=== PATIENT | female | born 1965 | race Hispanic/Latino ===

== ENCOUNTER 2017-05-28 09:05 | Inpatient (IN) | payer BC ==
[2017-05-28] MEDS ORDERED: NACL 0.9% 1000 ML 1,000 ML IV ONE (09:15)
[2017-05-28] MEDS ORDERED: XOPENEX IH ONE (09:15)
--- NOTE | 2017-05-28 09:18 | Emergency Department Report ---
ED Chest Pain HPI - General Stated Complaint: SOB Time Seen by Provider: 05/28/17 09:08 - History of Present Illness Initial Comments: 52-year-old female presents to the emergency department with complaint of some palpitations that have been going on since last night. This morning she noticed her heart rate to be between 130 and 150 bpm that was sustained throughout the morning. She has some shortness of breath and says that she feels some type of tightness within the chest. She has some nausea without vomiting. She denies any fever, diaphoresis. No recent travel or sick contacts at home. She has a past medical history of hyperlipidemia, hypertension and insomnia. She works as a nurse here at [employer]. Primary care physician is Dr. Medrano. She is not currently have a plant general manager but has seen [facility] in the past, years ago. She did not take anything for her symptoms prior to presentation. - Related Data Home Medications Medication Instructions Recorded Confirmed Last Taken ALPRAZolam [Xanax TAB] 0.5 mg PO HS PRN 05/28/17 05/28/17 Unknown FLUoxetine HCL [Prozac] 10 mg PO QDAY 05/28/17 05/28/17 05/28/17 Losartan/Hydrochlorothiazide 1 each PO QDAY 05/28/17 05/28/17 05/28/17 [Losartan-Hctz 50-12.5 mg Tab] Pantoprazole [Protonix] 40 mg PO QDAY 05/28/17 05/28/17 05/28/17 Simvastatin [Zocor TAB] 20 mg PO QHS 05/28/17 05/28/17 05/27/17 traZODone [Desyrel] 100 mg PO QHS 05/28/17 05/28/17 05/27/17 Allergies Allergy/AdvReac Type Severity Reaction Status Date / Time bupropion [From Wellbutrin] AdvReac Hives Verified 05/28/17 11:37 codeine AdvReac Hives Verified 05/28/17 11:37 levofloxacin [From Levaquin] AdvReac Hives Verified 05/28/17 11:37 Heart Score - HEART Score History: Slightly suspicious EKG: Non-specific Age: 45-65 Risk factors: 1-2 risk factors Troponin: < normal limit HEART Score: 3 - Critical Actions Critical Actions: 0-3 pts:0.9-1.7%risk of adverse cardiac event.Candidate for discharge ED Review of Systems ROS: Stated complaint: SOB Other details as noted in HPI Comment: All other systems reviewed and negative Constitutional: denies: chills, fever Eyes: denies: eye pain, eye discharge, vision change ENT: denies: ear pain, throat pain Respiratory: shortness of breath. denies: cough Cardiovascular: chest pain. denies: edema Gastrointestinal: nausea. denies: abdominal pain, vomiting Genitourinary: denies: urgency, dysuria, discharge Musculoskeletal: denies: joint swelling, arthralgia Skin: denies: rash, lesions Neurological: denies: headache, weakness, paresthesias ED Past Medical Hx - Past Medical History Previous Medical History?: No - Surgical History Past Surgical History?: No - Medications Home Medications: Home Medications Medication Instructions Recorded Confirmed Last Taken Type ALPRAZolam [Xanax TAB] 0.5 mg PO HS PRN 05/28/17 05/28/17 Unknown History FLUoxetine HCL [Prozac] 10 mg PO QDAY 05/28/17 05/28/17 05/28/17 History Losartan/Hydrochlorothiazide 1 each PO QDAY 05/28/17 05/28/17 05/28/17 History [Losartan-Hctz 50-12.5 mg Tab] Pantoprazole [Protonix] 40 mg PO QDAY 05/28/17 05/28/17 05/28/17 History Simvastatin [Zocor TAB] 20 mg PO QHS 05/28/17 05/28/17 05/27/17 History traZODone [Desyrel] 100 mg PO QHS 05/28/17 05/28/17 05/27/17 History ED Physical Exam - Other Other exam information: GENERAL: The patient is well-developed well-nourished. HENT: Normocephalic. Atraumatic. Patient has moist mucous membranes. EYES: Extraocular motions are intact. Pupils equal reactive to light bilaterally. NECK: Supple. Trachea is midline. CHEST/LUNGS: Clear to auscultation. There is no respiratory distress noted. HEART/CARDIOVASCULAR: Regular. There is mild tachycardia. There is no murmur. ABDOMEN: Abdomen is soft, nontender. Patient has normal bowel sounds. There is no abdominal distention. SKIN: Skin is warm and dry. NEURO: The patient is awake, alert, and oriented. The patient is cooperative. The patient has no focal neurologic deficits. The patient has normal speech and gait. MUSCULOSKELETAL: There is no tenderness or deformity. There is no limitation range of motion. There is no evidence of acute injury. ED Course Vital Signs 05/28/17 05/28/17 09:16 11:27 Temperature 98.5 F Pulse Rate 109 H 87 Respiratory 20 16 Rate Blood Pressure 134/82 Blood Pressure 111/67 [Left] O2 Sat by Pulse 100 Oximetry ZENOBIA score - Zenobia Score Age > 65: (0) No Aspirin use within the Past 7 Days: (0) No 3 or more CAD Risk Factors: (0) No 2 or more Angina events in past 24 hrs: (1) Yes Known CAD with more than 50% Stenosis: (0) No Elevated Cardiac Markers: (0) No ST Deviation Greater than 0.5mm: (0) No ZENOBIA Score: 1 ED Medical Decision Making - Lab Data Result diagrams: 05/28/17 Unknown 05/28/17 Unknown - EKG Data -: EKG Interpreted by Me EKG shows normal: sinus rhythm, axis, intervals, QRS complexes, ST-T waves ( nonspecific ST-T waves) Rate: tachycardia (113 bpm) - EKG Data When compared to previous EKG there are: previous EKG unavailable Interpretation: nonspecific ST-T wave marissa (with sinus tachycardia) - Radiology Data Radiology results: image reviewed interpreted by me: Chest x-ray does not show any acute process. There are no pleural effusions, obvious pneumonia and there is no pneumothorax. - Medical Decision Making Patient's workup is thus far been negative. However she does have a few risk factors for coronary artery disease and continues to have some chest discomfort without any recent stress test. EKG does not show any installation of my, ischemia or dysrhythmia. The patient will be admitted to hospital for cardiology consultation and probable stress test. She has been accepted for admission by the hospitalist, Dr. Medrano, who is asked for bridging orders to be placed. - Differential Diagnosis ME, costochondritis, pneumonia, PE Critical Care Time: No Critical care attestation.: If time is entered above; I have spent that time in minutes in the direct care of this critically ill patient, excluding procedure time. ED Disposition Clinical Impression: Heart palpitations Chest pain Qualifiers: Chest pain type: unspecified Qualified Code(s): R07.9 - Chest pain, unspecified Dyspnea Qualifiers: Dyspnea type: shortness of breath Qualified Code(s): R06.02 - Shortness of breath Disposition: DC-09 OP ADMIT IP TO THIS HOSP Is pt being admited?: Yes Does the pt Need Aspirin: Yes Condition: Stable Instructions: Chest Pain (ED) Referrals: AYE MEDRANO MD [Primary Care Provider] - 3-5 Days Time of Disposition: 11:25
[2017-05-28 09:58] LABS: Basophils # (Auto) 0.1 K/mm3 (0.0-0.1); Basophils % (Auto) 0.9 % (0.0-1.8); Eosinophils # (Auto) 0.1 K/mm3 (0.0-0.4); Eosinophils % (Auto) 1.2 % (0.0-4.3); Hematocrit 41.2 % (30.3-42.9); Hemoglobin 14.2 gm/dl (10.1-14.3); Lymphocytes # (Auto) 2.4 K/mm3 (1.2-5.4); Lymphocytes % (Auto) 30.6 % (13.4-35.0); Mean Corpuscular HGB Conc 35 % (30-34); Mean Corpuscular Hemoglobin 29 pg (28-32); Mean Corpuscular Volume 84 fl (79-97); Monocytes # (Auto) 0.4 K/mm3 (0.0-0.8); Monocytes % (Auto) 5.5 % (0.0-7.3); Platelet Count 348 K/mm3 (140-440); Red Blood Count 4.91 M/mm3 (3.65-5.03); Red Cell Distribution Width 13.6 % (13.2-15.2)
--- NOTE | 2017-05-28 10:00 | XRay Report ---
AP CHEST: HISTORY: chest pain AP view of the chest demonstrates a normal mediastinal and cardiac contour with clear lungs and normal bony and soft tissue structures. IMPRESSION: Unremarkable AP chest.
[2017-05-28 10:19] LABS: BUN/Creatinine Ratio 17; Blood Urea Nitrogen 12 mg/dL (7-17); Hemolysis Index 5
[2017-05-28] MEDS ORDERED: MORPHINE IV ONE ×2 (10:27→12:29)
[2017-05-28] MEDS ORDERED: BABY ASPIRIN PO ONE (11:25)
[2017-05-28] MEDS ORDERED: ZOFRAN IV ONE (12:29)
[2017-05-28] MEDS: HEPARIN SUB-Q SCH ×2 (15:03→22:41)
--- NOTE | 2017-05-28 16:11 | Consultation ---
History of Present Illness Consult date: 05/28/17 Requesting physician: CODY BABB Consult reason: chest pain History of present illness: The pt is a 52-year-old female with a past medical history significant for HTN and HLP. She is previously unknown to our practice. She is a nurse at [employer]. She presented with complaints of some palpitations since yesterday evening. This morning she noticed her heart rate to be between 130 and 150 bpm that was sustained throughout the morning. She had some shortness of breath and says that she feelt a vice-like chest tightness as well. She had some nausea without vomiting. She denies any fever, diaphoresis. She admits that for the past 2 years, she has been intermittently experiencing a nonexertional, nonradiating midsternal vice-like pain which has no clear aggravating or alleviating factors. She underwent treadmill stress test this AM and developed some chest pain with minimal ST elevations in inferolateral leads during recovery. On evaluation, she is resting comfortably and denies any current complaints. Past History Past Medical History: hypertension, hyperlipidemia Social history: , lives with family Family history: no significant family history Medications and Allergies Allergies Allergy/AdvReac Type Severity Reaction Status Date / Time bupropion [From Wellbutrin] AdvReac Hives Verified 05/28/17 11:37 codeine AdvReac Hives Verified 05/28/17 11:37 levofloxacin [From Levaquin] AdvReac Hives Verified 05/28/17 11:37 Home Medications Medication Instructions Recorded Confirmed Last Taken Type ALPRAZolam [Xanax TAB] 0.5 mg PO HS PRN 05/28/17 05/28/17 Unknown History FLUoxetine HCL [Prozac] 10 mg PO QDAY 05/28/17 05/28/17 05/28/17 History Losartan/Hydrochlorothiazide 1 each PO QDAY 05/28/17 05/28/17 05/28/17 History [Losartan-Hctz 50-12.5 mg Tab] Pantoprazole [Protonix] 40 mg PO QDAY 05/28/17 05/28/17 05/28/17 History Simvastatin [Zocor TAB] 20 mg PO QHS 05/28/17 05/28/17 05/27/17 History traZODone [Desyrel] 100 mg PO QHS 05/28/17 05/28/17 05/27/17 History Active Meds: Active Medications Heparin Sodium (Porcine) (Heparin) 5,000 unit SUB-Q Q8HR [facility] Last Admin: 05/28/17 15:03 Dose: Not Given Review of Systems Constitutional: no weight loss, no weight gain, no fever, no chills, no sweats Ears, nose, mouth and throat: no ear pain, no nose pain, no sinus pressure, no sinus pain Cardiovascular: chest pain, palpitations, shortness of breath, high blood pressure, no orthopnea, no rapid/irregular heart beat, no edema, no syncope, no lightheadedness Respiratory: no cough, no congestion, no wheezing, no pain on inspiration Gastrointestinal: nausea, no abdominal pain, no vomiting, no diarrhea, no constipation, no change in bowel habits Genitourinary Female: no pelvic pain, no flank pain, no dysuria, no urinary frequency, no urgency Musculoskeletal: no neck stiffness, no neck pain, no shooting arm pain, no arm numbness/tingling, no low back pain, no shooting leg pain, no leg numbness/ tingling, no redness of joints Integumentary: no rash, no pruritis, no redness, no sores, no wounds Neurological: no head injury, no paralysis, no weakness, no parathesias, no numbness, no tingling, no seizures, no syncope Psychiatric: no anxiety Endocrine: no cold intolerance, no heat intolerance Hematologic/Lymphatic: no easy bruising, no easy bleeding, no lymphadenopathy Allergic/Immunologic: no urticaria, no wheezing, no persistent infections Physical Examination Vital Signs Temp Pulse Resp BP Pulse Ox 98.5 F 109 H 20 134/82 100 05/28/17 09:16 05/28/17 09:16 05/28/17 09:16 05/28/17 09:16 05/28/17 09:16 General appearance: no acute distress HEENT: Positive: PERRL, Normocephaly, Mucus Membranes Moist Neck: Positive: neck supple, trachea midline Cardiac: Positive: Reg Rate and Rhythm, S1/S2 Lungs: Positive: Normal Exam, clear to auscultation, Normal Breath Sounds Neuro: Positive: Grossly Intact, Cranial Nerve 2-12 Intact Abdomen: Positive: Soft. Negative: Tender Skin: Positive: Clear. Negative: Rash, Wound Musculoskeletal: No Fluid Collection, No Pain, Normal Range of Motion Extremities: Absent: edema Results 05/28/17 Unknown 05/28/17 Unknown CBC 05/28/17 Range/Units Unknown WBC 8.0 (4.5-11.0) K/mm3 RBC 4.91 (3.65-5.03) M/mm3 Hgb 14.2 (10.1-14.3) gm/dl Hct 41.2 (30.3-42.9) % Plt Count 348 (140-440) K/mm3 Lymph # 2.4 (1.2-5.4) K/mm3 [place] # 0.4 (0.0-0.8) K/mm3 Eos # 0.1 (0.0-0.4) K/mm3 Baso # 0.1 (0.0-0.1) K/mm3 Comprehensive Metabolic Panel 05/28/17 Range/Units Unknown Sodium 136 L (137-145) mmol/L Potassium 3.9 (3.6-5.0) mmol/L Chloride 96.1 L (98-107) mmol/L Carbon Dioxide 21 L (22-30) mmol/L BUN 12 (7-17) mg/dL Creatinine 0.7 (0.7-1.2) mg/dL Glucose 105 H (65-100) mg/dL Calcium 9.0 (8.4-10.2) mg/dL - Imaging and Cardiology EKG: report reviewed, image reviewed EKG interpretations - Telemetry EKG Rhythm: Sinus Rhythm - EKG Sinus rhythms and dysrhythmias: sinus rhythm Assessment and Plan Assessment: Chest pain - with both atypical and typical features Abnormal stress test Palpitations HTN HLP Plan: Proceed with coronary angiography tomorrow for definitive diagnosis. NPO after MN. Assessment and plan reviewed with pt and pt's at bedside. The patient has been seen in conjunction with Dr. Kelly who agrees with the assessment and plan of care.
[2017-05-28] MEDS ORDERED: MORPHINE IV PRN (16:52)
[2017-05-28] MEDS ORDERED: NACL 0.9% 500 ML 500 ML IV SCH (17:00)
[2017-05-28] MEDS: MORPHINE IV PRN ×2 (17:37→21:22)
[2017-05-28 18:34] LABS: Creatine Kinase MB 1.4 ng/mL (0.0-4.0)
[2017-05-28] MEDS: ZOFRAN IV PRN (21:23)
--- NOTE | 2017-05-28 23:04 | History and Physical Report ---
History of Present Illness Date of examination: 05/28/17 Date of admission: 05/28/17 11:25 Chief complaint: Chief complaint: Left-sided chest pain since last night History of present illness: History of Present Illness: 52-year-old female with history of hypertension and hyperlipidemia comes in for left-sided chest pain and palpitations since last night. Symptoms have been persistent for the last 12 hours. Associated with some shortness of breath. Chest pain or 8 on a scale of 1-10. No aggravating or relieving factors. No diaphoresis. No palpitations. No recent travel. Past History Past Medical History: hypertension, hyperlipidemia Social history: , lives with family Family history: no significant family history Medications and Allergies Allergies Allergy/AdvReac Type Severity Reaction Status Date / Time bupropion [From Wellbutrin] AdvReac Hives Verified 05/28/17 11:37 codeine AdvReac Hives Verified 05/28/17 11:37 levofloxacin [From Levaquin] AdvReac Hives Verified 05/28/17 11:37 Home Medications Medication Instructions Recorded Confirmed Last Taken Type ALPRAZolam [Xanax TAB] 0.5 mg PO HS PRN 05/28/17 05/28/17 Unknown History FLUoxetine HCL [Prozac] 10 mg PO QDAY 05/28/17 05/28/17 05/28/17 History Losartan/Hydrochlorothiazide 1 each PO QDAY 05/28/17 05/28/17 05/28/17 History [Losartan-Hctz 50-12.5 mg Tab] Pantoprazole [Protonix] 40 mg PO QDAY 05/28/17 05/28/17 05/28/17 History Simvastatin [Zocor TAB] 20 mg PO QHS 05/28/17 05/28/17 05/27/17 History traZODone [Desyrel] 100 mg PO QHS 05/28/17 05/28/17 05/27/17 History Active Meds: Active Medications Heparin Sodium (Porcine) (Heparin) 5,000 unit SUB-Q Q8HR [facility] Last Admin: 05/28/17 15:03 Dose: Not Given Review of Systems Constitutional: no weight loss, no weight gain, no fever, no chills, no sweats Ears, nose, mouth and throat: no ear pain, no nose pain, no sinus pressure, no sinus pain Cardiovascular: chest pain, palpitations, shortness of breath, high blood pressure, no orthopnea, no rapid/irregular heart beat, no edema, no syncope, no lightheadedness Respiratory: no cough, no congestion, no wheezing, no pain on inspiration Gastrointestinal: nausea, no abdominal pain, no vomiting, no diarrhea, no constipation, no change in bowel habits Genitourinary Female: no pelvic pain, no flank pain, no dysuria, no urinary frequency, no urgency Musculoskeletal: no neck stiffness, no neck pain, no shooting arm pain, no arm numbness/tingling, no low back pain, no shooting leg pain, no leg numbness/ tingling, no redness of joints Integumentary: no rash, no pruritis, no redness, no sores, no wounds Neurological: no head injury, no paralysis, no weakness, no parathesias, no numbness, no tingling, no seizures, no syncope Psychiatric: no anxiety Endocrine: no cold intolerance, no heat intolerance Hematologic/Lymphatic: no easy bruising, no easy bleeding, no lymphadenopathy Allergic/Immunologic: no urticaria, no wheezing, no persistent infections 1 disease he Past History Past Medical History: hypertension, hyperlipidemia Social history: , lives with family Family history: no significant family history Medications and Allergies Allergies Allergy/AdvReac Type Severity Reaction Status Date / Time bupropion [From Wellbutrin] AdvReac Hives Verified 05/28/17 11:37 codeine AdvReac Hives Verified 05/28/17 11:37 levofloxacin [From Levaquin] AdvReac Hives Verified 05/28/17 11:37 Home Medications Medication Instructions Recorded Confirmed Last Taken Type ALPRAZolam [Xanax TAB] 0.5 mg PO HS PRN 05/28/17 05/28/17 Unknown History FLUoxetine HCL [Prozac] 10 mg PO QDAY 05/28/17 05/28/17 05/28/17 History Losartan/Hydrochlorothiazide 1 each PO QDAY 05/28/17 05/28/17 05/28/17 History [Losartan-Hctz 50-12.5 mg Tab] Pantoprazole [Protonix] 40 mg PO QDAY 05/28/17 05/28/17 05/28/17 History Simvastatin [Zocor TAB] 20 mg PO QHS 05/28/17 05/28/17 05/27/17 History traZODone [Desyrel] 100 mg PO QHS 05/28/17 05/28/17 05/27/17 History Active Meds: Active Medications Aspirin (Aspirin) 325 mg PO QDAY [facility] Heparin Sodium (Porcine) (Heparin) 5,000 unit SUB-Q Q8HR [facility] Last Admin: 05/28/17 22:41 Dose: Not Given Sodium Chloride (Nacl 0.9% 500 Ml) 500 mls @ 50 mls/hr IV DIRECT TIMMY Stop: 05/29/17 02:59 Last Admin: 05/28/17 17:24 Dose: 50 mls/hr Morphine Sulfate (Morphine) 2 mg IV Q4H PRN PRN Reason: Pain , Severe (7-10) Last Admin: 05/28/17 21:22 Dose: 2 mg Ondansetron HCl (Zofran) 4 mg IV Q6H PRN PRN Reason: Nausea And Vomiting Last Admin: 05/28/17 21:23 Dose: 4 mg Exam - Constitutional Vitals: Temp Pulse Resp BP Pulse Ox 98.5 F 73 15 116/65 95 05/28/17 09:16 05/28/17 22:01 05/28/17 22:01 05/28/17 22:01 05/28/17 22:01 General appearance: Present: no acute distress, well-nourished - EENT Eyes: Present: PERRL ENT: hearing intact, clear oral mucosa - Neck Neck: Present: supple, normal ROM - Respiratory Respiratory effort: normal Respiratory: bilateral: CTA - Cardiovascular Heart rate: 80 Rhythm: regular Heart Sounds: Present: S1 & S2. Absent: rub, click - Extremities Extremities: no ischemia, pulses intact, pulses symmetrical, No edema Peripheral Pulses: within normal limits - Abdominal General gastrointestinal: Present: soft, non-tender, non-distended, normal bowel sounds Female genitourinary: Present: normal - Integumentary Integumentary: Present: clear, warm, dry - Musculoskeletal Musculoskeletal: gait normal, strength equal bilaterally - Psychiatric Psychiatric: appropriate mood/affect, intact judgment & insight - Neurologic Neurologic: CNII-XII intact, moves all extremities - Allied Health Allied health notes reviewed: nursing, case management Results - Labs CBC & Chem 7: 05/28/17 Unknown 05/28/17 Unknown Labs: Laboratory Last Values WBC 8.0 K/mm3 (4.5-11.0) 05/28/17 Unknown RBC 4.91 M/mm3 (3.65-5.03) 05/28/17 Unknown Hgb 14.2 gm/dl (10.1-14.3) 05/28/17 Unknown Hct 41.2 % (30.3-42.9) 05/28/17 Unknown MCV 84 fl (79-97) 05/28/17 Unknown MCH 29 pg (28-32) 05/28/17 Unknown MCHC 35 % (30-34) H 05/28/17 Unknown RDW 13.6 % (13.2-15.2) 05/28/17 Unknown Plt Count 348 K/mm3 (140-440) 05/28/17 Unknown Lymph % (Auto) 30.6 % (13.4-35.0) 05/28/17 Unknown [place] % (Auto) 5.5 % (0.0-7.3) 05/28/17 Unknown Eos % (Auto) 1.2 % (0.0-4.3) 05/28/17 Unknown Baso % (Auto) 0.9 % (0.0-1.8) 05/28/17 Unknown Lymph # 2.4 K/mm3 (1.2-5.4) 05/28/17 Unknown [place] # 0.4 K/mm3 (0.0-0.8) 05/28/17 Unknown Eos # 0.1 K/mm3 (0.0-0.4) 05/28/17 Unknown Baso # 0.1 K/mm3 (0.0-0.1) 05/28/17 Unknown Seg Neutrophils % 61.8 % (40.0-70.0) 05/28/17 Unknown Seg Neutrophils # 4.9 K/mm3 (1.8-7.7) 05/28/17 Unknown D-Dimer 154.93 ng/mlDDU (0-234) 05/28/17 Unknown Sodium 136 mmol/L (137-145) L 05/28/17 Unknown Potassium 3.9 mmol/L (3.6-5.0) 05/28/17 Unknown Chloride 96.1 mmol/L (98-107) L 05/28/17 Unknown Carbon Dioxide 21 mmol/L (22-30) L 05/28/17 Unknown Anion Gap 23 mmol/L 05/28/17 Unknown BUN 12 mg/dL (7-17) 05/28/17 Unknown Creatinine 0.7 mg/dL (0.7-1.2) 05/28/17 Unknown Estimated GFR > 60 ml/min 05/28/17 Unknown BUN/Creatinine Ratio 17 % 05/28/17 Unknown Glucose 105 mg/dL (65-100) H 05/28/17 Unknown Calcium 9.0 mg/dL (8.4-10.2) 05/28/17 Unknown Total Creatine Kinase 81 units/L (30-135) 05/28/17 17:55 CK-MB (CK-2) 1.4 ng/mL (0.0-4.0) 05/28/17 17:55 CK-MB (CK-2) Rel Index 1.7 (0-4) 05/28/17 17:55 Troponin T < 0.010 ng/mL (0.00-0.029) 05/28/17 Unknown TSH 3.810 mlU/mL (0.270-4.200) 05/28/17 Unknown Short CBC 05/28/17 Range/Units Unknown WBC 8.0 (4.5-11.0) K/mm3 Hgb 14.2 (10.1-14.3) gm/dl Hct 41.2 (30.3-42.9) % Plt Count 348 (140-440) K/mm3 BMP 05/28/17 Unknown Sodium 136 L Potassium 3.9 Chloride 96.1 L Carbon Dioxide 21 L BUN 12 Creatinine 0.7 Glucose 105 H Calcium 9.0 Cardiac Enzymes 05/28/17 05/28/17 05/28/17 Range/Units 14:45 17:55 19:27 Total Creatine Kinase 81 (30-135) units/L CK-MB (CK-2) 1.4 (0.0-4.0) ng/mL Troponin T < 0.010 < 0.010 < 0.010 (0.00-0.029) ng/mL 05/28/17 Range/Units Unknown Total Creatine Kinase (30-135) units/L CK-MB (CK-2) (0.0-4.0) ng/mL Troponin T < 0.010 (0.00-0.029) ng/mL - Imaging and Cardiology EKG: report reviewed (normal sinus rhythm no acute ST-T wave changes) Chest x-ray: report reviewed (NAF) Assessment and Plan Advance Directives: Yes ( full code) VTE prophylaxis?: Chemical Plan of care discussed with patient/family: Yes - Patient Problems (1) Unstable angina Current Visit: Yes Status: Acute (2) Chest pain Current Visit: Yes Status: Acute Qualifiers: Chest pain type: unspecified Qualified Code(s): R07.9 - Chest pain, unspecified Plan to address problem: Treadmill stress test was positive in the morning. Patient to be taken to labor relations officer tomorrow. Serial cardiac enzymes. Cardiology consult. (3) Hypertension Current Visit: Yes Status: Chronic Qualifiers: Hypertension type: essential hypertension Qualified Code(s): I10 - Essential (primary) hypertension Plan to address problem: Continue losartan and hydrochlorothiazide (4) Hyperlipidemia Current Visit: Yes Status: Chronic Qualifiers: Hyperlipidemia type: mixed hyperlipidemia Qualified Code(s): E78.2 - Mixed hyperlipidemia Plan to address problem: Continue statins (5) Depression Current Visit: Yes Status: Chronic Qualifiers: Depression Type: unspecified Qualified Code(s): F32.9 - Major depressive disorder, single episode, unspecified Plan to address problem: Continue trazodone (6) DVT prophylaxis Current Visit: Yes Status: Acute Plan to address problem: On Lovenox
[2017-05-28] MEDS ORDERED: XANAX PO PRN (23:10)
[2017-05-29] MEDS: BENADRYL IV PRN ×3 (00:22→18:00)
[2017-05-29] MEDS: MORPHINE IV PRN ×3 (01:27→09:56)
--- NOTE | 2017-05-29 01:41 | Treadmill Report ---
INDICATION FOR PROCEDURE: Chest pain. The baseline electrocardiogram demonstrates normal sinus rhythm and is within normal limits. The resting heart rate was 112/80. PROCEDURE: The patient exercised according to the Levar protocol for 7 minutes, reaching a peak heart rate of 163 and a maximum blood pressure of 140/94. Exercise was limited by chest pain. The patient achieved 113% of the maximum predicted heart rate response and attained a workload of 8.3 mets. No significant ectopy was noted. The ST-T response during exercise appears normal; however, in the recovery phase, 1 mm of horizontal and upsloping ST-segment depression developed in the inferolateral leads. The exercise treadmill test is abnormal, characterized by chest discomfort and repolarization abnormalities suggestive of myocardial ischemia developing primarily in the recovery phase of the protocol. JOB# [id number] WILMER/CHANDU
[2017-05-29 05:34] LABS: Basophils # (Auto) 0.1 K/mm3 (0.0-0.1); Basophils % (Auto) 1.1 % (0.0-1.8); Eosinophils # (Auto) 0.2 K/mm3 (0.0-0.4); Eosinophils % (Auto) 2.1 % (0.0-4.3); Hematocrit 38.8 % (30.3-42.9); Hemoglobin 13.4 gm/dl (10.1-14.3); Lymphocytes # (Auto) 4.3 K/mm3 (1.2-5.4); Lymphocytes % (Auto) 44.7 % (13.4-35.0); Mean Corpuscular HGB Conc 35 % (30-34); Mean Corpuscular Hemoglobin 29 pg (28-32); Mean Corpuscular Volume 85 fl (79-97); Monocytes # (Auto) 0.5 K/mm3 (0.0-0.8); Monocytes % (Auto) 5.6 % (0.0-7.3); Red Blood Count 4.59 M/mm3 (3.65-5.03); Red Cell Distribution Width 13.4 % (13.2-15.2)
[2017-05-29 05:35] LABS: Platelet Count 259 K/mm3 (140-440)
[2017-05-29 05:44] LABS: BUN/Creatinine Ratio 15; Blood Urea Nitrogen 9 mg/dL (7-17); Calcium 8.5 mg/dL (8.4-10.2); Chol/HDL Ratio 3.64 %; HDL Cholesterol 45 mg/dL (40-59); Hemolysis Index 83; LDL Cholesterol,Direct 88 mg/dL (50-130)
[2017-05-29 05:46] LABS: INR 0.94 (0.87-1.13)
[2017-05-29] MEDS ORDERED: NON-FORMULARY (Losartan/Hydrochlorothiazide [Losartan-Hctz 50-12.5 Mg Tab] 1 EACH) PO SCH (10:00)
[2017-05-29] MEDS ORDERED: ASPIRIN PO SCH (10:00)
[2017-05-29] MEDS ORDERED: PROTONIX PO SCH (10:00)
[2017-05-29] MEDS ORDERED: COZAAR PO SCH (10:00)
[2017-05-29] MEDS ORDERED: HCTZ PO SCH (10:00)
[2017-05-29] MEDS ORDERED: PROzac PO SCH (10:00)
--- NOTE | 2017-05-29 10:28 | Progress Note ---
Assessment and Plan Assessment: Chest pain - with both atypical and typical features Abnormal stress test Palpitations HTN HLP Plan: Proceed with coronary angiography today. Await findings. The patient has been seen in conjunction with Dr. Kelly who agrees with the assessment and plan of care. Subjective Date of service: 05/29/17 Principal diagnosis: cp Interval history: Pt resting comfortably in bed, c/o intermittent chest pain overnight. NPO for [facility] today. Objective Last Vital Signs Temp 98.3 F 05/29/17 05:18 Pulse 77 05/29/17 05:44 Resp 18 05/29/17 05:18 BP 90/56 05/29/17 05:18 Pulse Ox 97 05/29/17 05:18 - Physical Examination General: No Apparent Distress HEENT: Positive: PERRL, Normocephaly, Mucus Membranes Moist Neck: Positive: neck supple, trachea midline Cardiac: Positive: Reg Rate and Rhythm, S1/S2 Lungs: Positive: clear to auscultation Neuro: Positive: Grossly Intact, Cranial Nerve 2-12 Intact Abdomen: Positive: Soft. Negative: Tender Skin: Positive: Clear. Negative: Rash, Wound Musculoskeletal: No Fluid Collection, No Pain, Normal Range of Motion Extremities: Absent: edema - Labs and Meds Cardiac Enzymes 05/28/17 Range/Units 17:55 CK-MB (CK-2) 1.4 (0.0-4.0) ng/mL Coagulation 05/29/17 Range/Units 05:03 PT 13.0 (12.2-14.9) Sec. INR 0.94 (0.87-1.13) Lipids 05/29/17 Range/Units 05:03 Triglycerides 155 H (2-149) mg/dL Cholesterol 164 (50-199) mg/dL HDL Cholesterol 45 (40-59) mg/dL Cholesterol/HDL Ratio 3.64 % CBC 05/29/17 Range/Units 05:03 WBC 9.5 (4.5-11.0) K/mm3 RBC 4.59 (3.65-5.03) M/mm3 Hgb 13.4 (10.1-14.3) gm/dl Hct 38.8 (30.3-42.9) % Plt Count 259 (140-440) K/mm3 Lymph # 4.3 (1.2-5.4) K/mm3 Donley # 0.5 (0.0-0.8) K/mm3 Eos # 0.2 (0.0-0.4) K/mm3 Baso # 0.1 (0.0-0.1) K/mm3 Comprehensive Metabolic Panel 05/29/17 Range/Units 05:03 Sodium 138 (137-145) mmol/L Potassium 4.4 (3.6-5.0) mmol/L Chloride 103.2 (98-107) mmol/L Carbon Dioxide 20 L (22-30) mmol/L BUN 9 (7-17) mg/dL Creatinine 0.6 L (0.7-1.2) mg/dL Glucose 91 (65-100) mg/dL Calcium 8.5 (8.4-10.2) mg/dL - Imaging and Cardiology EKG: report reviewed (normal sinus rhythm no acute ST-T wave changes) - Telemetry EKG Rhythm: Sinus Rhythm - EKG Sinus rhythms and dysrhythmias: sinus rhythm
[2017-05-29] MEDS ORDERED: NITROSTAT SL PRN (11:14)
--- NOTE | 2017-05-29 14:52 | Progress Note ---
Assessment and Plan - Patient Problems (1) Unstable angina Current Visit: Yes Status: Acute (2) Chest pain Current Visit: Yes Status: Acute Qualifiers: Chest pain type: unspecified Qualified Code(s): R07.9 - Chest pain, unspecified (3) Hypertension Current Visit: Yes Status: Chronic Qualifiers: Hypertension type: essential hypertension Qualified Code(s): I10 - Essential (primary) hypertension (4) Hyperlipidemia Current Visit: Yes Status: Chronic Qualifiers: Hyperlipidemia type: mixed hyperlipidemia Qualified Code(s): E78.2 - Mixed hyperlipidemia (5) Depression Current Visit: Yes Status: Chronic Qualifiers: Depression Type: unspecified Qualified Code(s): F32.9 - Major depressive disorder, single episode, unspecified (6) DVT prophylaxis Current Visit: Yes Status: Acute Subjective Date of service: 05/29/17 Principal diagnosis: cp Objective - Constitutional Vitals: Vital Signs - 12hr 05/29/17 05/29/17 05/29/17 05:18 05:44 07:29 Temperature 98.3 F 98.2 F Pulse Rate 64 77 64 Respiratory 18 20 Rate Blood Pressure 90/56 110/70 O2 Sat by Pulse 97 95 Oximetry 05/29/17 05/29/17 08:12 12:40 Temperature Pulse Rate 64 66 Respiratory Rate Blood Pressure 114/63 O2 Sat by Pulse Oximetry General appearance: Present: no acute distress, well-nourished - EENT Eyes: PERRL, EOM intact ENT: hearing intact, clear oral mucosa Ears: bilateral: normal - Neck Neck: supple, normal ROM - Respiratory Respiratory effort: normal Respiratory: bilateral: CTA - Breasts Breasts: normal - Cardiovascular Rhythm: regular Heart Sounds: Present: S1 & S2. Absent: gallop, rub Extremities: pulses intact, No edema, normal color, Full ROM - Gastrointestinal General gastrointestinal: Present: soft, non-tender, non-distended, normal bowel sounds - Genitourinary Female genitourinary: normal - Integumentary Integumentary: clear, warm, dry - Musculoskeletal Musculoskeletal: 1, strength equal bilaterally - Neurologic Neurologic: moves all extremities - Psychiatric Psychiatric: memory intact, appropriate mood/affect, intact judgment & insight - Labs CBC & Chem 7: 05/29/17 05:03 05/29/17 05:03 Labs: Abnormal lab results 05/29/17 05/29/17 Range/Units 05:03 05:03 MCHC 35 H (30-34) % Lymph % (Auto) 44.7 H (13.4-35.0) % Carbon Dioxide 20 L (22-30) mmol/L Creatinine 0.6 L (0.7-1.2) mg/dL Triglycerides 155 H (2-149) mg/dL
[2017-05-29] MEDS ORDERED: ZOFRAN ONE (15:28)
[2017-05-29] MEDS: ZOFRAN IV PRN (15:32)
[2017-05-29] MEDS ORDERED: ECOTRIN PO ONE (15:36)
[2017-05-29] MEDS ORDERED: NACL 0.9% 500 ML 500 ML ONE (15:43)
[2017-05-29] MEDS ORDERED: HEPARIN/NS 5000 UNIT/500ML(CATH LAB) 1,000 ML IR ONE (15:48)
[2017-05-29] MEDS ORDERED: XYLOCAINE 2% INFILTRATI ONE (15:48)
[2017-05-29] MEDS: SUBLIMAZE ONE ×2 (16:09→16:25)
[2017-05-29] MEDS: VERSED ONE ×2 (16:09→16:25)
[2017-05-29] MEDS: HEPARIN 10,000 UNITS/10 ML ONE ×2 (16:12→16:13)
[2017-05-29] MEDS: CALAN ONE ×2 (16:12→16:13)
[2017-05-29] MEDS: NITROGLYCERIN SYRINGE 3 ML ONE ×2 (16:12→16:13)
--- NOTE | 2017-05-29 18:25 | Cardiac Catherization Report ---
INDICATIONS: Chest pain. CLINICAL INFORMATION: This is a 52-year-old female with obesity, hypertension, having shortness of breath with exertion, was having refractory chest pain despite negative stress test and troponin, here for left heart catheterization for definitive diagnosis. Moderate sedation supervision 1.5 mg of Versed and 100 mcg of fentanyl was given. Total sedation time was 25 minutes. Start time 1610 and end time was 1635. PROCEDURE DETAILS: Left heart cath performed via the right radial artery, normal Jeremías's test, sterile technique, local anesthesia, 6-Monegasque radial sheath inserted. PROCEDURE FINDINGS: Left system engaged with an AL2 catheter, high anterior takeoff. Left main large and patent and bifurcates into LAD that has proximal large caliber, mid to distal . Medium caliber vessel that is patent. Small diagonal 1 is patent. Circumflex is a large caliber vessel and AV groove patent. OM1 is a large caliber vessel, patent. RCA engaged with JR4 catheter, is a large dominant vessel, patent from proximally and distally. Medium caliber PDA, PLV is patent and normal. LV gram done in SAMMARINESE and CLEMENT view shows normal LV function, EF 55-60%, LVEDP 20 mmHg, LV is 120/20. Aortic is 120/66. No gradient across the aortic valve on pullback. 5-Monegasque catheters were taken over guidewire. 6-Monegasque radial sheath was discontinued. Radial dressing applied. No hematoma, no bleeding. SUMMARY: 1. Normal coronaries, right dominant system. 2. Normal LV function. 3. Continue risk factor modification. Discussed this in detail with the patient and patient's family. JOB# [id number] MADELYN/CHANDU
--- NOTE | 2017-05-29 18:34 | Discharge Summary ---
Providers - Providers Date of Admission: 05/28/17 11:25 Date of discharge: 05/29/17 Attending physician: AYE MEDRANO 05/28/17 11:35 Consult to Cardiology [CONS] Routine Consulting Provider: PORSCHE BROWN Reason For Exam: Chest pain, palpitations 05/28/17 22:55 Consult to Physician [CONS] Routine Consulting Provider: TIMOTHY HARRIS Reason For Exam: positive stress test Notified:: yes 05/29/17 16:31 Consult to Cardiac Rehabilitation [CONS] Routine Reason For Exam: Cardiac Rehab Evaluation Primary care physician: AYE MEDRANO Hospitalization Condition: Stable Hospital course: Assessment and Plan Advance Directives: Yes ( full code) VTE prophylaxis?: Chemical Plan of care discussed with patient/family: Yes - Patient Problems (1) Unstable angina Current Visit: Yes Status: Acute (2) Chest pain Current Visit: Yes Status: Acute Qualifiers: Chest pain type: unspecified Qualified Code(s): R07.9 - Chest pain, unspecified Plan to address problem: Treadmill stress test was positive in the morning. Patient to be taken to laboratory technician tomorrow. Serial cardiac enzymes. Cardiology consult. (3) Hypertension Current Visit: Yes Status: Chronic Qualifiers: Hypertension type: essential hypertension Qualified Code(s): I10 - Essential (primary) hypertension Plan to address problem: Continue losartan and hydrochlorothiazide (4) Hyperlipidemia Current Visit: Yes Status: Chronic Qualifiers: Hyperlipidemia type: mixed hyperlipidemia Qualified Code(s): E78.2 - Mixed hyperlipidemia Plan to address problem: Continue statins (5) Depression Current Visit: Yes Status: Chronic Qualifiers: Depression Type: unspecified Qualified Code(s): F32.9 - Major depressive disorder, single episode, unspecified Plan to address problem: Continue trazodone (6) DVT prophylaxis Current Visit: Yes Status: Acute Plan to address problem: On Lovenox Disposition: DC-01 TO HOME OR SELFCARE Time spent for discharge: 32 minutes - Discharge Diagnoses (1) Unstable angina Status: Acute (2) Chest pain Status: Acute Qualifiers: Chest pain type: unspecified Qualified Code(s): R07.9 - Chest pain, unspecified (3) Hypertension Status: Chronic Qualifiers: Hypertension type: essential hypertension Qualified Code(s): I10 - Essential (primary) hypertension (4) Hyperlipidemia Status: Chronic Qualifiers: Hyperlipidemia type: mixed hyperlipidemia Qualified Code(s): E78.2 - Mixed hyperlipidemia (5) Depression Status: Chronic Qualifiers: Depression Type: unspecified Qualified Code(s): F32.9 - Major depressive disorder, single episode, unspecified (6) DVT prophylaxis Status: Acute Core Measure Documentation - Palliative Care Palliative Care/ Comfort Measures: Not Applicable - Core Measures Any of the following diagnoses?: none Exam - Constitutional Vitals: Temp Pulse Resp BP Pulse Ox 98 F 66 18 116/84 95 05/29/17 17:00 05/29/17 12:40 05/29/17 17:00 05/29/17 17:00 05/29/17 07:29 General appearance: Present: no acute distress, well-nourished - EENT Eyes: Present: PERRL ENT: hearing intact, clear oral mucosa - Neck Neck: Present: supple, normal ROM - Respiratory Respiratory effort: normal Respiratory: bilateral: CTA - Cardiovascular Heart Sounds: Present: S1 & S2. Absent: rub, click - Extremities Extremities: pulses symmetrical, No edema Peripheral Pulses: within normal limits - Abdominal General gastrointestinal: Present: soft, non-tender, non-distended, normal bowel sounds Female genitourinary: Present: normal - Integumentary Integumentary: Present: clear, warm, dry - Musculoskeletal Musculoskeletal: gait normal, strength equal bilaterally - Psychiatric Psychiatric: appropriate mood/affect, intact judgment & insight - Neurologic Neurologic: CNII-XII intact, moves all extremities Plan Activity: no restrictions Diet: low fat, low cholesterol, low salt Follow up with: AYE MEDRANO MD [Primary Care Provider] - 3-5 Days Forms: Work/School Excuse Out Patient
[2017-05-29 20:20] VITALS: BP 115/50
[2017-05-29] MEDS ORDERED: LOVENOX SUB-Q SCH (22:00)
[2017-05-29] MEDS ORDERED: DESYREL PO SCH (22:00)
[2017-05-29] MEDS ORDERED: PRAVACHOL PO SCH (22:00)
[2017-05-30] MEDS ORDERED: IMDUR PO SCH (10:00)
== END 2017-05-29 20:35 | disposition home or self-care (01) | DRG 287 ==
LOC: ED 09:05 → EEVIPCON 09:05 → 4A 11:25 → EEVIPCON 11:25 → 4A 23:33
PROVIDERS: ADMIT Internal Medicine; ATTEND Internal Medicine
PROC: 4A023N7 Measurement of Cardiac Sampling and Pressure, Left Heart, Percutaneous Approach (ICD-10-PCS; principal; 2017-05-29)
PROC: B2111ZZ Fluoroscopy of Multiple Coronary Arteries using Low Osmolar Contrast (ICD-10-PCS; 2017-05-29)
PROC: B2151ZZ Fluoroscopy of Left Heart using Low Osmolar Contrast (ICD-10-PCS; 2017-05-29)
DX: I20.0 Unstable angina (principal); I10 Essential (primary) hypertension; F32.9 Major depressive disorder, single episode, unspecified; E78.5 Hyperlipidemia, unspecified; Z88.1 Allergy status to other antibiotic agents; Z88.5 Allergy status to narcotic agent; Z88.8 Allergy status to other drugs, medicaments and biological substances
CPT/HCPCS: 36415; 71045; 80048; 80061; 82550; 82553; 84443; 84484; 85025; 85379; 85610; 93005; 93010; 93017; 93458; 96361; 96374; 96375; C1887; C1894; J1200; J1644; J2250; J2270; J2405; J3010; J7030; J7040; Q9967

== ENCOUNTER 2017-12-16 17:29 | Emergency (ER) | payer OTHER, BC ==
[2017-12-16 17:46] VITALS: BP 136/72
--- NOTE | 2017-12-16 17:52 | Emergency Department Report ---
HPI - General Chief Complaint: Puncture Wound Time Seen by Provider: 12/16/17 17:47 - HPI HPI: No room The patient is a 52-year-old female presented with a chief complaint of needle stick. The patient states she was cleaning up the room after patient was sutured on with surgeon and accidentally stuck herself with a suture needle on her right middle finger. This patient suture was used on does not report a history of infectious disease but has left prior to testing Location: Right middle finger Duration: [See above] Quality: [See above] Severity: Mild Modifying factors: [see above] Context: [see above] Mode of transportation: [not driving] ED Past Medical Hx - Past Medical History Hx Hypertension: Yes - Surgical History Hx Cholecystectomy: Yes - Family History Family history: no significant - Social History Smoking Status: Current Some Day Smoker Substance Use Type: None - Medications Home Medications: Home Medications Medication Instructions Recorded Confirmed Last Taken Type ALPRAZolam [Xanax TAB] 0.5 mg PO HS PRN 05/28/17 05/28/17 Unknown History FLUoxetine HCL [Prozac] 10 mg PO QDAY 05/28/17 05/28/17 05/28/17 History Losartan/Hydrochlorothiazide 1 each PO QDAY 05/28/17 05/28/17 05/28/17 History [Losartan-Hctz 50-12.5 mg Tab] Pantoprazole [Protonix] 40 mg PO QDAY 05/28/17 05/28/17 05/28/17 History Simvastatin [Zocor TAB] 20 mg PO QHS 05/28/17 05/28/17 05/27/17 History traZODone [Desyrel] 100 mg PO QHS 05/28/17 05/28/17 05/27/17 History Raltegravir Potassium [Isentress] 400 mg PO BID #60 tablet 12/16/17 Unknown Rx ED Review of Systems ROS: Stated complaint: BLOOD DRAWN Other details as noted in HPI Constitutional: no symptoms reported Respiratory: no symptoms reported Endocrine: no symptoms reported Physical Exam - Physical Exam Vital Signs: Vital Signs 12/16/17 17:43 Temperature 98.2 F Pulse Rate 82 Respiratory 20 Rate Blood Pressure 136/72 O2 Sat by Pulse 98 Oximetry Physical Exam: GENERAL: The patient is well-developed well-nourished female standing not appear to be in acute distress. [] HEENT: Normocephalic. Atraumatic. NECK: Trachea midline CHEST/LUNGS: Clear to auscultation. There is no respiratory distress noted. HEART/CARDIOVASCULAR: Regular. There is no tachycardia. There is no gallop rub or murmur. ABDOMEN: Patient has normal bowel sounds. There is no abdominal distention. SKIN: There is a small puncture wound to the fingertip of the right middle finger. No active bleeding. There is no diaphoresis. NEURO: The patient is awake, alert, and oriented. The patient is cooperative. The patient has normal speech and gait. MUSCULOSKELETAL:There is no limitation range of motion. ED Course Vital Signs 12/16/17 17:43 Temperature 98.2 F Pulse Rate 82 Respiratory 20 Rate Blood Pressure 136/72 O2 Sat by Pulse 98 Oximetry - Consultations Consultation #1: 12/16/17 17:[address] Forbes (infectious disease)-recommends administering Truvada Qday x 30 days, Isentres 400mg BID x 30 days, having HIV, hepatitis B surface antibody, hepatitis B antigen, hepatitis C antibodies sent off today ED Medical Decision Making - Medical Decision Making Patient given hand written prescription for Truvada 200 mg-300 mg # 30 1 po Qday , as this option is not available on [facility] - Differential Diagnosis needle stick Critical care attestation.: If time is entered above; I have spent that time in minutes in the direct care of this critically ill patient, excluding procedure time. ED Disposition Clinical Impression: Needle stick injury of finger Disposition: DC-01 TO HOME OR SELFCARE Is pt being admited?: No Does the pt Need Aspirin: No Condition: Stable Instructions: Needle Stick Injuries (ED) Additional Instructions: Return to the emergency department immediately should you develop worsening symptoms, fever, inability to tolerate food or liquid or any other concerns. Prescriptions: Raltegravir Potassium [Isentress] 400 mg PO BID #60 tablet Referrals: [facility] [LAB/CONTRACT] - 2-3 Days Time of Disposition: 18:04
== END 2017-12-16 18:35 | disposition home or self-care (01) ==
LOC: ED 17:29
DX: S61.232A Puncture wound without foreign body of right middle finger without damage to nail, initial encounter (principal); I10 Essential (primary) hypertension; F17.200 Nicotine dependence, unspecified, uncomplicated; Z90.49 Acquired absence of other specified parts of digestive tract; W27.3XXA Contact with needle (sewing), initial encounter; Y93.89 Activity, other specified; Y92.89 Other specified places as the place of occurrence of the external cause; Y99.8 Other external cause status
CPT/HCPCS: 36415; 86706; 86803; 87806; 99283

== ENCOUNTER 2018-11-04 20:35 | Emergency (ER) | payer BC, OTHER ==
[2018-11-04 20:41] VITALS: BP 148/91
[2018-11-04] MEDS ORDERED: LET TOPICAL TP ONE (20:44)
--- NOTE | 2018-11-04 20:44 | Emergency Department Report ---
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 BLEEDING CONTROLLED ED Review of Systems ROS: Stated complaint: THUMB LACERATION Other details as noted in HPI Comment: All other systems reviewed and negative ED Past Medical Hx - Past Medical History Hx Hypertension: Yes Hx Psychiatric Treatment: Yes (depression, anxiety) Additional medical history: high cholesterol - Surgical History Hx Cholecystectomy: Yes Additional Surgical History: hernia repair, hysterectomy - Social History Smoking Status: Current Some Day Smoker Substance Use Type: None - Medications Home Medications: Home Medications Medication Instructions Recorded Confirmed Last Taken Type ALPRAZolam [Xanax TAB] 0.5 mg PO HS PRN 05/28/17 05/28/17 Unknown History FLUoxetine HCL [Prozac] 10 mg PO QDAY 05/28/17 05/28/17 05/28/17 History Losartan/Hydrochlorothiazide 1 each PO QDAY 05/28/17 05/28/17 05/28/17 History [Losartan-Hctz 50-12.5 mg Tab] Pantoprazole [Protonix] 40 mg PO QDAY 05/28/17 05/28/17 05/28/17 History Simvastatin (Nf) [Zocor TAB] 20 mg PO QHS 05/28/17 05/28/17 05/27/17 History traZODone [Desyrel] 100 mg PO QHS 05/28/17 05/28/17 05/27/17 History Raltegravir Potassium [Isentress] 400 mg PO BID #60 tablet 12/16/17 Unknown Rx Benzonatate [Tessalon Perle] 100 mg PO TID PRN #21 capsule 04/06/18 Unknown Rx Prednisone [predniSONE 5 mg (6-Day 5 mg PO .TAPER #1 tab.ds.pk 04/06/18 Unknown Rx Pack, 21 Tabs)] Sulfamethoxazole/Trimethoprim 1 each PO BID #6 tablet 11/04/18 Unknown Rx [Bactrim DS TAB] traMADol [Ultram] 50 mg PO Q6HR PRN #12 tablet 11/04/18 Unknown Rx Laceration Physical Exam - Exam General: Vital signs noted. No distress. Alert and acting appropriately. Laceration Location: Upper Extremity Laceration Exam: Yes Normal Distal CMS, No Foreign Body, No Exposed Tendon, Vessel, or Nerve, No Tendon Injury ED Course Vital Signs 11/04/18 20:40 Temperature 98.3 F Pulse Rate 99 H Respiratory 18 Rate Blood Pressure 148/91 [Right] O2 Sat by Pulse 99 Oximetry - Laceration /Wound Repair THUMB Wound Location: upper extremity Irrigated w/ Saline (ccs): 3 Betadine Prep?: Yes Anesthesia: 1% Lidocaine Volume Anesthetic (ccs): 1 Wound Debrided: minimal Wound Repaired With: sutures Suture Size/Type: 3:0 Number of Sutures: 4 Layer Closure?: No Sterile Dressing Applied?: Yes Progress: TOLERATED WELL ED Medical Decision Making - Medical Decision Making NEUROVASC INTACT LAC REPAIRED WOUND CLEANED AND DRESSED MEDICATED FOR PAIN TDAP UTD DC HOME WITH DC PLAN OF CARE - Differential Diagnosis SIMPLE LAC Critical care attestation.: If time is entered above; I have spent that time in minutes in the direct care of this critically ill patient, excluding procedure time. ED Disposition Clinical Impression: Thumb laceration Disposition: DC-01 TO HOME OR SELFCARE Is pt being admited?: No Does the pt Need Aspirin: No Condition: Stable Instructions: Laceration (ED) Additional Instructions: SUTURES OUT IN APPROX 7 DAYS ICE/REST/ELEVATE TONIGHT SPLINT TONIGHT TO KEEP STILL KEEP COVERED AT WORK MONITOR FOR INFECTION MEDS DISCUSSED MOTRIN OR TYLENOL FOR MILD PAIN Prescriptions: Sulfamethoxazole/Trimethoprim [Bactrim DS TAB] 1 each PO BID #6 tablet traMADol [Ultram] 50 mg PO Q6HR PRN #12 tablet PRN Reason: Pain Referrals: KIMBERLY CALIXTO MD [Primary Care Provider] - 3-5 Days CORNELIA JONES MD [Staff Physician] - 3-5 Days Forms: Work/School Release Form(ED) Time of Disposition: 21:36
[2018-11-04] MEDS ORDERED: XYLOCAINE 1% MPF 5 mL ONE (21:12)
[2018-11-04] MEDS ORDERED: NORCO 10/325 PO ONE (21:34)
[2018-11-04] MEDS ORDERED: XYLOCAINE 1% MPF 5 mL INFILTRATI ONE (21:34)
== END 2018-11-04 21:50 | disposition home or self-care (01) ==
LOC: ED 20:35
DX: S61.012A Laceration without foreign body of left thumb without damage to nail, initial encounter (principal); I10 Essential (primary) hypertension; F41.9 Anxiety disorder, unspecified; F32.9 Major depressive disorder, single episode, unspecified; E78.00 Pure hypercholesterolemia, unspecified; F17.200 Nicotine dependence, unspecified, uncomplicated; Z90.710 Acquired absence of both cervix and uterus; Z98.890 Other specified postprocedural states; W26.8XXA Contact with other sharp object(s), not elsewhere classified, initial encounter; Y93.89 Activity, other specified; Y92.090 Kitchen in other non-institutional residence as the place of occurrence of the external cause; Y99.8 Other external cause status